=== PATIENT | male | born 2000 | race Two or more races ===

== ENCOUNTER 2021-01-16 15:28 | Emergency (ER) | payer OTHER ==
[~2021-01-16] VITALS: Ht 185.4 cm; Wt 68.2 kg
[2021-01-16] MEDS ORDERED: MIDAZOLAM HCL 5 MG/ML VIAL ONE (16:29)
[2021-01-16] MEDS ORDERED: FentaNYL CITRATE PF 100 MCG/2 ML VIAL ONE (16:30)
[2021-01-16] MEDS ORDERED: FLUMAZENIL 0.1 MG/ML 5 ML VIAL IVP ONE (16:30)
[2021-01-16] MEDS ORDERED: NALOXONE HCL 1 MG/ML 2 ML SYG ONE (16:30)
[2021-01-16] MEDS ORDERED: FentaNYL CITRATE PF 100 MCG/2 ML VIAL IVP ONE (17:00)
[2021-01-16] MEDS ORDERED: MIDAZOLAM HCL 2 MG/2 ML VIAL IVP ONE (17:00)
[2021-01-16 17:45] VITALS: BP 124/60
== END 2021-01-16 18:49 | disposition home or self-care (01) ==
LOC: EMS 15:30
DX: S43.015A Anterior dislocation of left humerus, initial encounter (principal); W50.1XXA Accidental kick by another person, initial encounter; Y93.66 Activity, soccer; Y92.89 Other specified places as the place of occurrence of the external cause; Y99.8 Other external cause status
CPT/HCPCS: 23650; 73030; 99152; 99153; 99285; J2250; J2310; J3010; J3490